=== PATIENT | male | born 1985 | race Hispanic/Latino ===

== ENCOUNTER 2024-02-12 14:28 | Inpatient (IN) | payer OTHER ==
[2024-02-12] MEDS ORDERED: levETIRAcetam 500 MG (5 mL) VIAL ONE (15:45)
[2024-02-12] MEDS ORDERED: Acetaminophen 325 MG TAB PO PRN (17:06)
[2024-02-12] MEDS ORDERED: Dextrose 50% Abboject 50 ML SYRINGE SLOW IVP PRN (17:07)
[2024-02-12] MEDS ORDERED: Insulin Lispro 100 UNIT/ML 10 ML VIAL SC PRN (17:07)
[2024-02-12] MEDS ORDERED: Dextrose 5% in Water 1,000 ML IV PRN (17:07)
[2024-02-12] MEDS ORDERED: Glucagon 1 MG/ML KIT IM PRN (17:07)
[2024-02-12 22:37] VITALS: BMI 32.4
[2024-02-13 04:32] LABS: #Basophils 0.04 10x3/uL (0.0-0.2); %Basophils 0.5 % (0.0-1.0); %Lymphocytes 11.4 % (21.0-51.0); %Monocytes 9.5 % (0.0-10.0); %Neutrophils 77.3 % (42.0-75.0); Hematocrit 38.2 % (42.0-52.0); Hemoglobin 13.1 g/dL (14.0-18.0); Mean Corpuscular HGB CONC 34.3 g/dL (32.0-36.0); Mean Corpuscular Hemoglobin 34.8 pg (27.0-31.0); Mean Corpuscular Volume 101.6 fL (78.0-98.0); Mean Platelet Volume 12.4 fL (7.4-10.4); Platelet Count 55 10x3/uL (130-400); RBC Distribution Width 12.1 % (11.5-14.5); Red Blood Cell (RBC) Count 3.76 mill/uL (4.70-6.10)
[2024-02-13 04:41] LABS: ALT (SGPT) 30 U/L (8-55); AST (SGOT) 89 U/L (5-34); Albumin 2.8 g/dL (3.5-5.0); Alkaline Phosphatase 127 U/L (40-110); Anion Gap 11 mmol/L (10-20); BUN (Urea Nitrogen) Less than 4 mg/dL (8.9-20.6); Bilirubin, Total 1.5 mg/dL (0.2-1.2); Calc. Creatinine Clearance 228 mL/min (70-130); Carbon Dioxide 22 mmol/L (22-29); Chloride 102 mmol/L (98-107); Estimated GFR 133; Globulin 3.7 g/dL (2.4-3.5); Glucose 77 mg/dL (70-105); Potassium 3.1 mmol/L (3.5-5.1); Protein, Total 6.5 g/dL (6.0-8.3); Sodium 132 mmol/L (136-145)
[2024-02-13] MEDS ORDERED: Lorazepam 2 MG/ML VIAL IM PRN (07:44)
[2024-02-13] MEDS: Potassium Bicarbonate/Cit Ac 20 MEQ TAB PO SCH (09:50)
[2024-02-13] MEDS: Folic Acid 1 MG TAB PO SCH (09:50)
[2024-02-13] MEDS: Multivit, Therapeutic 1 TAB PO SCH (09:50)
[2024-02-13] MEDS: NS 0.9% w/ 20 MEQ KCL 1,000 ML/1,000 ML BAG IV SCH (09:51)
[2024-02-13] MEDS: Thiamine HCl 200 MG/2 ML VIAL SLOW IVP SCH (09:51)
[2024-02-13] MEDS: Magnesium 2 GM/50 ML(in water) 2 GM in Premix 1 BAG IVPB SCH (09:51)
[2024-02-13] MEDS: Lorazepam 1 MG TAB PO PRN (14:53)
[2024-02-13] MEDS: Lorazepam 2 MG/ML VIAL SLOW IVP SCH ×2 (16:26→22:09)
[2024-02-13] MEDS ORDERED: cloNIDine 0.1 MG TAB PO PRN (16:30)
[2024-02-13] MEDS ORDERED: Lorazepam 1 MG TAB PO PRN ×2 (16:38→16:42)
[2024-02-13] MEDS ORDERED: Lorazepam 2 MG/ML VIAL SLOW IVP PRN (16:43)
[2024-02-13] MEDS: Lorazepam 1 MG TAB PO SCH (17:44)
[2024-02-13] MEDS: cloNIDine 0.1mg/24 Hour PATCH TD SCH (17:45)
[2024-02-13] MEDS: D5 LR w/20 mEq KCL 1,000 ML IV SCH (18:30)
[2024-02-13] MEDS: Cyanocobalamin (Vitamin B-12) 1,000 MCG TAB PO SCH (20:20)
[2024-02-13] MEDS: Lorazepam 2 MG/ML VIAL SLOW IVP PRN (20:20)
[2024-02-13] MEDS: Ondansetron ODT 4 MG TAB PO PRN (20:21)
[2024-02-13] MEDS ORDERED: Diazepam 10 MG/2 ML SYRINGE IVP SCH (22:00)
[2024-02-13] MEDS: Diazepam 10 MG/2 ML SYRINGE IVP SCH ×2 (22:04→22:50)
[2024-02-13] MEDS: Dexmedetomidine In 0.9 % NaCl 100 ML IVPB SCH (23:03)
[2024-02-13] MEDS ORDERED: Lorazepam 1 MG TAB PO SCH (23:59)
[2024-02-14 04:48] LABS: #Basophils 0.04 10x3/uL (0.0-0.2); %Basophils 0.6 % (0.0-1.0); %Eosinophils 1.8 % (0.0-10.0); %Lymphocytes 18.3 % (21.0-51.0); %Monocytes 10.6 % (0.0-10.0); %Neutrophils 68.3 % (42.0-75.0); Hematocrit 42.4 % (42.0-52.0); Hemoglobin 14.4 g/dL (14.0-18.0); Mean Corpuscular Hemoglobin 35.6 pg (27.0-31.0); Mean Platelet Volume 13.3 fL (7.4-10.4); Platelet Count 43 10x3/uL (130-400); Red Blood Cell (RBC) Count 4.04 mill/uL (4.70-6.10)
[2024-02-14 05:00] LABS: Phosphorus 2.2 mg/dL (2.3-4.7)
[2024-02-14 05:07] LABS: ALT (SGPT) 32 U/L (8-55); AST (SGOT) 96 U/L (5-34); Albumin 2.9 g/dL (3.5-5.0); Alkaline Phosphatase 145 U/L (40-110); Anion Gap 13 mmol/L (10-20); BUN (Urea Nitrogen) Less than 4 mg/dL (8.9-20.6); Bilirubin, Total 1.3 mg/dL (0.2-1.2); Calc. Creatinine Clearance 201 mL/min (70-130); Calcium 8.4 mg/dL (7.8-10.44); Carbon Dioxide 17 mmol/L (22-29); Chloride 105 mmol/L (98-107); Estimated GFR 128; Glucose 122 mg/dL (70-105); Magnesium 1.8 mg/dL (1.6-2.6); Potassium 4.6 mmol/L (3.5-5.1); Protein, Total 6.9 g/dL (6.0-8.3); Sodium 130 mmol/L (136-145)
[2024-02-14] MEDS ORDERED: Lorazepam 1 MG TAB PO PRN ×2 (07:44)
[2024-02-14] MEDS: Pantoprazole 40 MG VIAL IVP SCH (08:49)
[2024-02-14] MEDS: Potassium Phosphate 30 MMOL in Sodium Chloride 0.9% 250 ML 250 ML IVPB SCH (09:32)
[2024-02-15 04:33] LABS: #Basophils 0.04 10x3/uL (0.0-0.2); %Basophils 0.6 % (0.0-1.0); %Eosinophils 1.8 % (0.0-10.0); %Lymphocytes 17.4 % (21.0-51.0); %Monocytes 9.5 % (0.0-10.0); %Neutrophils 70.3 % (42.0-75.0); Hematocrit 40.6 % (42.0-52.0); Hemoglobin 13.7 g/dL (14.0-18.0); Mean Corpuscular HGB CONC 33.7 g/dL (32.0-36.0); Mean Corpuscular Hemoglobin 34.4 pg (27.0-31.0); Mean Platelet Volume 12.7 fL (7.4-10.4); Platelet Count 71 10x3/uL (130-400); RBC Distribution Width 12.3 % (11.5-14.5); Red Blood Cell (RBC) Count 3.98 mill/uL (4.70-6.10)
[2024-02-15 04:40] LABS: INR-International Normal Ratio 1.4; Prothrombin Time 16.7 sec (12.0-14.7)
[2024-02-15 04:41] LABS: PTT 37.4 sec (22.9-36.1)
[2024-02-15 04:49] LABS: ALT (SGPT) 44 U/L (8-55); AST (SGOT) 122 U/L (5-34); Albumin 2.7 g/dL (3.5-5.0); Alkaline Phosphatase 128 U/L (40-110); Anion Gap 12 mmol/L (10-20); BUN (Urea Nitrogen) Less than 4 mg/dL (8.9-20.6); Bilirubin, Total 1.1 mg/dL (0.2-1.2); Calc. Creatinine Clearance 230 mL/min (70-130); Calcium 8.5 mg/dL (7.8-10.44); Carbon Dioxide 20 mmol/L (22-29); Chloride 105 mmol/L (98-107); Estimated GFR 133; Globulin 3.5 g/dL (2.4-3.5); Glucose 144 mg/dL (70-105); Magnesium 1.8 mg/dL (1.6-2.6); Phosphorus 3.7 mg/dL (2.3-4.7); Potassium 3.9 mmol/L (3.5-5.1); Protein, Total 6.2 g/dL (6.0-8.3); Sodium 133 mmol/L (136-145)
[2024-02-15] MEDS ORDERED: Lorazepam 1 MG TAB PO PRN ×3 (07:44→15:42)
[2024-02-15] MEDS: FLU (Fluarix Triv) TS24-25(6MOS UP)/PF 45 MCG/0.5 ML Syringe IM ONE (09:08)
[2024-02-15] MEDS: Magnesium 2 GM/50 ML(in water) 2 GM in Premix 1 BAG IVPB SCH (10:02)
[2024-02-15] MEDS ORDERED: Lorazepam 2 MG/ML VIAL SLOW IVP PRN ×2 (15:40→15:44)
[2024-02-15] MEDS ORDERED: Lorazepam 0.5 MG TAB PO SCH (23:59)
[2024-02-16 04:34] LABS: #Basophils 0.05 10x3/uL (0.0-0.2); %Basophils 0.6 % (0.0-1.0); %Eosinophils 1.7 % (0.0-10.0); %Lymphocytes 20.4 % (21.0-51.0); %Neutrophils 64.9 % (42.0-75.0); Hematocrit 40.7 % (42.0-52.0); Hemoglobin 13.5 g/dL (14.0-18.0); Mean Corpuscular HGB CONC 33.2 g/dL (32.0-36.0); Mean Corpuscular Hemoglobin 34.8 pg (27.0-31.0); Mean Corpuscular Volume 104.9 fL (78.0-98.0); Mean Platelet Volume 12.7 fL (7.4-10.4); Platelet Count 88 10x3/uL (130-400); RBC Distribution Width 12.6 % (11.5-14.5); Red Blood Cell (RBC) Count 3.88 mill/uL (4.70-6.10)
[2024-02-16 04:44] LABS: ALT (SGPT) 39 U/L (8-55); AST (SGOT) 82 U/L (5-34); Albumin 2.7 g/dL (3.5-5.0); Alkaline Phosphatase 134 U/L (40-110); Anion Gap 13 mmol/L (10-20); BUN (Urea Nitrogen) Less than 4 mg/dL (8.9-20.6); Bilirubin, Total 1.1 mg/dL (0.2-1.2); Calc. Creatinine Clearance 190 mL/min (70-130); Calcium 8.9 mg/dL (7.8-10.44); Carbon Dioxide 23 mmol/L (22-29); Chloride 105 mmol/L (98-107); Estimated GFR 126; Globulin 3.7 g/dL (2.4-3.5); Glucose 144 mg/dL (70-105); Magnesium 1.9 mg/dL (1.6-2.6); Phosphorus 4.2 mg/dL (2.3-4.7); Potassium 4.2 mmol/L (3.5-5.1); Protein, Total 6.4 g/dL (6.0-8.3); Sodium 137 mmol/L (136-145)
[2024-02-16 04:46] LABS: INR-International Normal Ratio 1.3; Prothrombin Time 16.5 sec (12.0-14.7)
[2024-02-16] MEDS ORDERED: Lorazepam 0.5 MG TAB PO PRN ×2 (07:44)
[2024-02-16] MEDS: pyridOXINE 50 MG (B6) TAB PO SCH (08:44)
[2024-02-16] MEDS ORDERED: Thiamine 100 MG TAB PO SCH (09:00)
[2024-02-16] MEDS: D5 LR w/20 mEq KCL 1,000 ML IV SCH (19:26)
[2024-02-17 03:30] LABS: #Basophils 0.03 10x3/uL (0.0-0.2); %Basophils 0.4 % (0.0-1.0); %Eosinophils 2.2 % (0.0-10.0); %Lymphocytes 19.2 % (21.0-51.0); %Monocytes 11.4 % (0.0-10.0); %Neutrophils 66.4 % (42.0-75.0); Hematocrit 41.4 % (42.0-52.0); Hemoglobin 14.1 g/dL (14.0-18.0); Mean Corpuscular HGB CONC 34.1 g/dL (32.0-36.0); Mean Corpuscular Hemoglobin 35.3 pg (27.0-31.0); Mean Corpuscular Volume 103.8 fL (78.0-98.0); Mean Platelet Volume 12.7 fL (7.4-10.4); Platelet Count 89 10x3/uL (130-400); RBC Distribution Width 12.4 % (11.5-14.5); Red Blood Cell (RBC) Count 3.99 mill/uL (4.70-6.10)
[2024-02-17 04:13] LABS: ALT (SGPT) 40 U/L (8-55); AST (SGOT) 73 U/L (5-34); Albumin 2.7 g/dL (3.5-5.0); Alkaline Phosphatase 135 U/L (40-110); Anion Gap 14 mmol/L (10-20); BUN (Urea Nitrogen) 4 mg/dL (8.9-20.6); Calc. Creatinine Clearance 196 mL/min (70-130); Calcium 8.9 mg/dL (7.8-10.44); Carbon Dioxide 24 mmol/L (22-29); Chloride 104 mmol/L (98-107); Estimated GFR 128; Globulin 3.8 g/dL (2.4-3.5); Glucose 139 mg/dL (70-105); Magnesium 1.7 mg/dL (1.6-2.6); Phosphorus 4.4 mg/dL (2.3-4.7); Potassium 3.9 mmol/L (3.5-5.1); Protein, Total 6.5 g/dL (6.0-8.3); Sodium 138 mmol/L (136-145)
[2024-02-17] MEDS: Pantoprazole DR 40 MG TAB PO SCH (09:57)
[2024-02-17] MEDS: Magnesium 2 GM/50 ML(in water) 2 GM in Premix 1 BAG IVPB SCH (09:57)
[2024-02-18] MEDS: Acetaminophen 325 MG TAB PO PRN (00:48)
[2024-02-18 05:20] LABS: INR-International Normal Ratio 1.2; Prothrombin Time 15.3 sec (12.0-14.7)
[2024-02-18 05:29] LABS: #Basophils 0.04 10x3/uL (0.0-0.2); %Basophils 0.6 % (0.0-1.0); %Eosinophils 1.8 % (0.0-10.0); %Lymphocytes 22.3 % (21.0-51.0); %Monocytes 11.6 % (0.0-10.0); %Neutrophils 63.4 % (42.0-75.0); Hematocrit 40.5 % (42.0-52.0); Hemoglobin 13.9 g/dL (14.0-18.0); Mean Corpuscular HGB CONC 34.3 g/dL (32.0-36.0); Mean Corpuscular Hemoglobin 35.2 pg (27.0-31.0); Mean Corpuscular Volume 102.5 fL (78.0-98.0); Mean Platelet Volume 12.5 fL (7.4-10.4); Platelet Count 102 10x3/uL (130-400); RBC Distribution Width 12.5 % (11.5-14.5); Red Blood Cell (RBC) Count 3.95 mill/uL (4.70-6.10)
[2024-02-18 05:37] LABS: ALT (SGPT) 39 U/L (8-55); AST (SGOT) 72 U/L (5-34); Albumin 2.8 g/dL (3.5-5.0); Alkaline Phosphatase 127 U/L (40-110); Anion Gap 16 mmol/L (10-20); BUN (Urea Nitrogen) 4 mg/dL (8.9-20.6); Bilirubin, Total 0.9 mg/dL (0.2-1.2); Calc. Creatinine Clearance 188 mL/min (70-130); Calcium 8.9 mg/dL (7.8-10.44); Carbon Dioxide 21 mmol/L (22-29); Chloride 103 mmol/L (98-107); Estimated GFR 126; Globulin 3.6 g/dL (2.4-3.5); Glucose 113 mg/dL (70-105); Magnesium 1.9 mg/dL (1.6-2.6); Protein, Total 6.4 g/dL (6.0-8.3); Sodium 136 mmol/L (136-145)
[2024-02-18 12:18] VITALS: BP 122/82; TEMP 98.8
== END 2024-02-18 14:30 | disposition home or self-care (01) | DRG 897 ==
LOC: ERS 14:28 → 2SE 16:27 → OBSVTOIN 02-13 17:51 → IMCU/EMU 02-13 22:50 → 2SE 02-17 21:35
PROVIDERS: ADMIT Internal Medicine; ATTEND Internal Medicine
PROC: 4A00X4Z Measurement of Central Nervous Electrical Activity, External Approach (ICD-10-PCS; principal; 2024-02-13)
DX: F10.239 Alcohol dependence with withdrawal, unspecified (principal); E87.1 Hypo-osmolality and hyponatremia; D68.9 Coagulation defect, unspecified; R56.9 Unspecified convulsions; M25.562 Pain in left knee; D53.9 Nutritional anemia, unspecified; E83.42 Hypomagnesemia; E87.6 Hypokalemia; E11.9 Type 2 diabetes mellitus without complications; Z79.84 Long term (current) use of oral hypoglycemic drugs; Z79.899 Other long term (current) drug therapy; D69.6 Thrombocytopenia, unspecified; E88.09 Other disorders of plasma-protein metabolism, not elsewhere classified
CPT/HCPCS: 36415; 36416; 70551; 71045; 80053; 83735; 84100; 84550; 85025; 85610; 85730; 95700; 95711; 95957; 96374; 96375; G0378; J1953; J2060; J2470; J3360; J3411; J3475; J3480; J7050; Q0162